=== PATIENT | female | born 1955 | race Caucasian/White ===

== ENCOUNTER 2023-03-12 06:38 | Day surgery (SDC) | payer MEDICARE ==
[~2023-03-12] VITALS: Ht 152.4 cm; Wt 64.0 kg
[2023-03-12] MEDS ORDERED: fentaNYL citrate 0.05 MG/ML VIAL ONE (08:04)
[2023-03-12] MEDS ORDERED: MIDAZOLAM 2 MG/2 ML VIAL ONE (08:05)
[2023-03-12] MEDS ORDERED: LIDOCAINE 2% 100 MG/5 ML UJET TP ONE (08:05)
[2023-03-12] MEDS ORDERED: fentaNYL citrate 0.05 MG/ML VIAL IVP ONE (12:35)
== END 2023-03-12 09:37 | disposition home or self-care (01) ==
LOC: MDS 06:38 → MMU 06:44 → MDS 09:37
PROVIDERS: ATTEND Internal Medicine Gastroenterology
DX: R19.5 Other fecal abnormalities (principal); K63.5 Polyp of colon; I10 Essential (primary) hypertension; K21.9 Gastro-esophageal reflux disease without esophagitis; E11.9 Type 2 diabetes mellitus without complications; E78.00 Pure hypercholesterolemia, unspecified; Z80.0 Family history of malignant neoplasm of digestive organs; Z90.710 Acquired absence of both cervix and uterus; Z79.82 Long term (current) use of aspirin; Z79.899 Other long term (current) drug therapy
CPT/HCPCS: 45385; J3010; J2250